=== PATIENT | male | born 1985 | race Two or more races ===

== ENCOUNTER 2025-06-04 15:18 | Outpatient (CLI) | payer BC ==
[2025-06-04 15:43] LABS: Hematocrit 45.2 % (41.0-53.0); Hemoglobin 15.9 g/dL (13.5-17.5); Mean Corpuscular Hemoglobin 28.9 pg (28.0-32.0); Mean Corpuscular Volume 82.2 fL (80.0-100.0); Nucleated Red Blood Cells % 0.3 %
[2025-06-04 15:47] LABS: Urine Protein, UAD Negative (Negative)
[2025-06-04 16:02] LABS: Alanine Aminotransferase 30 U/L (7-40); Albumin 4.5 g/dL (3.2-4.8); Alkaline Phosphatase 66 U/L (46-116); Anion Gap 10 (5-15); BUN/Creatinine Ratio 9.3 (10.0-20.0); Blood Urea Nitrogen 10 mg/dL (9-23); Calcium 9.5 mg/dL (8.7-10.4); Carbon Dioxide 28 mmol/L (20-31); Chloride 104 mmol/L (98-107); Glucose 82 mg/dL (74-106); HDL Cholesterol 46 mg/dL (40-59); Potassium 4.1 mmol/L (3.5-5.1); Sodium 142 mmol/L (136-145); Total Protein 7.1 g/dL (5.7-8.2)
[2025-06-04 16:03] LABS: Bilirubin, Total 1.0 mg/dL (0.2-1.0); Cholesterol 262 mg/dL (< 200); Triglycerides 433 mg/dL (< 150)
== END 2025-06-04 17:00 | disposition home or self-care (01) ==
LOC: LAB 15:18
PROVIDERS: ATTEND Internal Medicine
DX: I10 Essential (primary) hypertension (principal); Z12.5 Encounter for screening for malignant neoplasm of prostate; M25.512 Pain in left shoulder
CPT/HCPCS: 36415; 80053; 80061; 81001; 83036; 84153; 84403; 84443; 85025; 85652; 86038; 86141